=== PATIENT | female | born 1995 | race Caucasian/White ===

== ENCOUNTER → 2017-12-17 | Outpatient (CLI) | payer BC ==
--- NOTE | 2017-12-17 17:26 | Diagnostic Imaging Report ---
EXAM: Pelvic ultrasound. INDICATION: Abnormal uterine bleeding The previous pelvic ultrasound exam of 08/29/2014 failed to show any sign of an acute pelvic abnormality. On this exam, the uterus is nongravid, retroverted and not enlarged measuring 5 x 5.0 x 4.0 cm. The endometrial lining is not thickened measuring 5-6 mm. There is no focal mass involving the uterus to suggest a fibroid. In the interval since the prior exam, a 4.8 x 3.8 x 4.6 cm well-circumscribed hypoechoic lesion has developed in the right adnexa. Most likely this represent a large cyst arising from the right ovary. This cyst has a generally benign appearance although there may be a few internal echoes. This suggests that this maybe slightly complicated by infection and/or hemorrhage. The left ovary is unremarkable. There is good blood flow to each ovary and there is no sign of torsion. There is no solid pelvic mass identified but there was a small amount of free fluid in the pelvis. IMPRESSION: 1. There is a large 4.8 x 3.8 x 4.6 cm slightly complicated cyst associated with the right ovary. If further evaluation is desired, laparoscopy should be considered. If there is no intervention at this time, then a short-term (4-6 week) followup ultrasound exam should be obtained. 2. Aside from a small amount of free fluid in the pelvis, there is no acute abnormality noted otherwise. Dictated by: Dictated on workstation # [id number]
== END ==
LOC: RAD 13:43
PROVIDERS: ATTEND Obstetrics & Gynecology
DX: N83.201 Unspecified ovarian cyst, right side (principal); M25.48 Effusion, other site
CPT/HCPCS: 76830; 76856

== ENCOUNTER 2018-01-16 14:26 | Day surgery (SDC) | payer BC ==
[~2018-01-16] VITALS: Ht 162.6 cm; Wt 49.4 kg
[2018-01-16] MEDS: D5 LR IV SOLUTION 1,000 ML IV SCH ×2 (14:45→15:35)
--- OUTSIDE RECORDS SUMMARY | 2018-01-16 14:53 | XMS REPORT | Referral Summary ---
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 Discharge Disposition: 01-Home or Self Care Attending Physician: Anand Head MD Vital Signs Most recent to 1 oldest [Reference Range]: Peripheral Pulse 87 bpm Rate [60-100 bpm] (05/29/17 8:24 AM) Blood Pressure 110/70 mmHg [90-140/60-90 mmHg] (05/29/17 8:24 AM) Problem List Condition Effective Dates Status Health Status Informant 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 d) Allergies, Adverse Reactions, Alerts No Known Allergies Medications acetaminophen 0 Refill(s) Start Date: 05/29/17 Status: Ordered levothyroxine 25 mcg (0.025 mg) oral tablet 25 mcg 1 tabs, Oral, Daily, # 30 tabs, 0 Refill(s) Start Date: 05/29/17 Status: Ordered Motrin IB mg, Oral, q6hr, 0 Refill(s) Start Date: 10/30/14 Status: Ordered Results Chemistry Most recent to 1 oldest [Reference Range]: T4 Free [0.7-1.5 1.0 ng/dL ng/dL] (05/29/17 9:06 AM) TSH [0.35-4.94 5.87 mcIU/mL mcIU/mL] *HI* (05/29/17 9:06 AM) T3 Free [1.7-3.7 2.5 pg/mL pg/mL] (05/29/17 9:06 AM) Immunizations No data available for this section Procedures Procedure Date Related Diagnosis Body Site Status Collection of venous blood by venipuncture 05/29/17 Completed Miscellaneous operations1 09/19/14 Completed 1Bilateral femoral derotation osteotomy Social History Social History Type Response Smoking Status Never smoker entered on: 10/30/14 Assessment and Plan Extracted from: Title: Office Visit Note Author: Anand Head MD Date: 05/29/17 1) Will thyroiditis/Hypothyroidism - Discussed nature of disease and outcomes. - Repeat Thyroid functions. - Consider switching to brand name thyroid hormone. - Counseled on the proper way of taking thyroid hormone. Thank you for Referring to Endocrinology, will continue to follow up.
--- OUTSIDE RECORDS SUMMARY | 2018-01-16 14:54 | XMS REPORT ---
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 Duong. On narcotics for this issue Surgical History R knee scope 2012 Surgical History bilateral femeral derotation 2013 2013 Surgical History hardware removal 2016
--- OUTSIDE RECORDS SUMMARY | 2018-01-16 14:54 | XMS REPORT ---
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 152522766 ALLERGIES No Information ENCOUNTERS Encounter Location Date Diagnosis [facility] [address] [place] [address] Nov, [facility] [address] [place] [address] Nov, [facility] [address] [place] [address] Nov, [facility] [address] [place] [address] Nov, [facility] [address] [place] [address] Nov, Irregular menses N92.6 ; 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 and At high risk for breast cancer Z91.89 [facility] [address] [place] [address] Nov, [facility] [address] [place] [address] Mar, [facility] [address] [place] [address] Mar, [facility] [address] [place] [address] Nov, [facility] [address] [place] [address] Nov, [facility] [address] [place] [address] Oct, Other specified hypothyroidism E03.8 [facility] [address] [place] [address] Oct, [facility] [place] [address] [place] [address] Oct, Other specified hypothyroidism E03.8 [facility] [place] [address] [place] [address] Aug, Other specified hypothyroidism E03.8 ; Femoral rotation, 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 ; Family history of breast cancer Z80.3 and At high risk for breast cancer Z91.89 IMMUNIZATIONS No Known Immunizations SOCIAL HISTORY Never Assessed REASON FOR VISIT Abbagail PLAN OF CARE VITAL SIGNS MEDICATIONS Unknown Medications RESULTS No Results PROCEDURES No Known procedures INSTRUCTIONS MEDICATIONS ADMINISTERED No Known Medications MEDICAL (GENERAL) HISTORY Type Description Date Medical History migraine headaches with aura Medical History Hashimotos hypothyroidism, sees endocrine, [facility] Medical History Maternal grandmother with BRCA 2, patient's mother has had not tested positive, saw genetic counselor and no testing needed Medical History bilateral femoral derotation, 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 Duong. On narcotics for this issue Medical History Lifetime risk breast cancer 28% Surgical History R knee scope 2012 Surgical History bilateral femeral derotation 2013 2013 Surgical History hardware removal 2016
--- OUTSIDE RECORDS SUMMARY | 2018-01-16 14:54 | XMS REPORT ---
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
--- OUTSIDE RECORDS SUMMARY | 2018-01-16 14:54 | XMS REPORT ---
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 573247466 ALLERGIES No Information ENCOUNTERS Encounter Location Date Diagnosis [facility] [place] [address] [place] [address] Nov, [facility] [place] [address] [place] [address] Nov, Irregular menses N92.6 ; 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 and At high risk for breast cancer Z91.89 [facility] [place] [address] [place] [address] Nov, [facility] [address] [place] [address] Mar, [facility] [place] [address] [place] [address] Mar, [facility] [address] [place] [address] Nov, [facility] [address] [place] [address] Nov, [facility] [address] [place] [address] Oct, Other specified hypothyroidism E03.8 [facility] [address] [place] [address] Oct, [facility] [address] [place] [address] Oct, Other specified hypothyroidism E03.8 [facility] [address] [place] [address] Aug, Other specified hypothyroidism E03.8 ; Femoral rotation, 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
--- OUTSIDE RECORDS SUMMARY | 2018-01-16 14:54 | XMS REPORT ---
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 402740211 ALLERGIES No Information ENCOUNTERS Encounter Location Date Diagnosis [facility] [address] [place] [address] Nov, [facility] [address] [place] [address] Nov, [facility] [address] [place] [address] Nov, [facility] [address] [place] [address] Nov, [facility] [address] [place] [address] Nov, Irregular menses N92.6 ; 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 and At high risk for breast cancer Z91.89 [facility] [address] [place] [address] Nov, [facility] [address] [place] [address] Mar, [facility] [address] [place] [address] Mar, [facility] [address] [place] [address] Nov, [facility] [address] [place] [address] Nov, [facility] [address] [place] [address] Oct, Other specified hypothyroidism E03.8 [facility] [address] [place] [address] Oct, [facility] [place] [address] [place] [address] Oct, Other specified hypothyroidism E03.8 [facility] [place] [address] [place] [address] Aug, Other specified hypothyroidism E03.8 ; Femoral rotation, 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
--- OUTSIDE RECORDS SUMMARY | 2018-01-16 14:54 | XMS REPORT ---
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
--- OUTSIDE RECORDS SUMMARY | 2018-01-16 14:54 | XMS REPORT ---
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
--- OUTSIDE RECORDS SUMMARY | 2018-01-16 14:54 | XMS REPORT ---
Author Author Skylar Devine 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 [place] [address] [place] [address] Mar, [facility] [address] [place] [address] Nov, [facility] [address] [place] [address] Nov, [facility] [address] [place] [address] Oct, Other specified hypothyroidism E03.8 [facility] [address] [place] [address] Oct, [facility] [address] [place] [address] Oct, Other specified hypothyroidism E03.8 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 ; Family history of breast cancer Z80.3 and At high risk for breast cancer Z91.89 IMMUNIZATIONS No Known Immunizations SOCIAL HISTORY Never Assessed REASON FOR VISIT PELVIC EXAM/IRREGULAR BLEEDING PLAN OF CARE Activity Details Pending Test CBC Pending Test COMPREHENSIVE CHEM PROFILE Pending Test HbA1C Pending Test TSH Pending Test FREE T4 Pending Test FSH Pending Test LH Pending Test HCG, BETA QUANT Pending Test CHLAMYDIA/GC AMPLIFICATION #101809 Pending Test Prolactin #294247 Pending Test Progesterone #792981 Pending Test ANA LILIA/Saline Wet Prep (Vag, Mouth/Tongue/Mucous Membranes) Pending Test DHEA Sulfate #745405 VITAL SIGNS Weight 107.8 lbs 2017-11-20 Height 63 in 2017-11-20 Temperature 98.2 degrees Fahrenheit 2017-11-20 Heart Rate 74 /min 2017-11-20 Oximetry 98 % 2017-11-20 BMI 19.09 kg/m2 2017-11-20 Blood pressure systolic 120 mm Hg 2017-11-20 Blood pressure diastolic 82 mm Hg 2017-11-20 MEDICATIONS Medication Instructions Dosage Frequency Start Date End Date Duration Status Zyrtec Allergy 10 MG Orally Once a day 1 tablet 24h Active Levothyroxine Sodium 25 MCG Orally Once a day 1 tablet on an empty stomach in the morning 24h 90 days Active Hydrocodone-Acetaminophen 5-325 MG Orally every 6 hrs 1 tablet as needed 6h Active Acetaminophen 325 MG Orally every 6 hrs 2 capsules as needed 6h Active RESULTS No Results PROCEDURES Procedure Date Ordered Result Body Site CHLAMYDIA DNA Nov 20, 2017 GC DNA Nov 20, 2017 ANA LILIA/SALINE WET PREP Nov 20, 2017 CBC Nov 20, 2017 COMP PROFILE Nov 20, 2017 TSH Nov 20, 2017 FREE T4 Nov 20, 2017 PROGESTERONE Nov 20, 2017 DHEA SULFATE Nov 20, 2017 HgB A1C Nov 20, 2017 PROLACTIN Nov 20, 2017 HCG BETA QUANT Nov 20, 2017 LH Nov 20, 2017 FSH Nov 20, 2017 INSTRUCTIONS MEDICATIONS ADMINISTERED No Known Medications MEDICAL [...]
--- OUTSIDE RECORDS SUMMARY | 2018-01-16 14:54 | XMS REPORT ---
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
--- OUTSIDE RECORDS SUMMARY | 2018-01-16 14:54 | XMS REPORT ---
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
--- OUTSIDE RECORDS SUMMARY | 2018-01-16 14:54 | XMS REPORT ---
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 708081010 ALLERGIES No Information ENCOUNTERS Encounter Location Date Diagnosis [facility] [place] [address] [place] [address] Nov, [facility] [place] [address] [place] [address] Nov, [facility] [place] [address] [place] [address] Mar, [facility] [place] [address] [place] [address] Mar, [facility] [place] [address] [place] [address] Nov, [facility] [place] [address] [place] [address] Nov, [facility] [place] [address] [place] [address] Oct, Other specified hypothyroidism E03.8 [facility] [place] [address] [place] [address] Oct, [facility] [place] [address] [place] [address] Oct, Other specified hypothyroidism E03.8 [facility] [place] [address] [place] [address] Aug, Other specified hypothyroidism E03.8 ; Femoral rotation, 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
--- OUTSIDE RECORDS SUMMARY | 2018-01-16 14:54 | XMS REPORT ---
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 [id number] ALLERGIES No Information ENCOUNTERS Encounter Location Date Diagnosis [facility] [address] [place] [address] Nov, [facility] [address] [place] [address] Nov, [facility] [address] [place] [address] Nov, [facility] [address] [place] [address] Nov, [facility] [address] [place] [address] Nov, Irregular menses N92.6 ; 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 and At high risk for breast cancer Z91.89 [facility] [address] [place] [address] Nov, [facility] [address] [place] [address] Mar, [facility] [address] [place] [address] Mar, [facility] [address] [place] [address] Nov, [facility] [address] [place] [address] Nov, [facility] [address] [place] [address] Oct, Other specified hypothyroidism E03.8 [facility] [address] [place] [address] Oct, [facility] [address] [place] [address] Oct, Other specified hypothyroidism E03.8 [facility] [place] [address] [place] [address] Aug, Other specified hypothyroidism E03.8 ; Femoral rotation, 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
--- OUTSIDE RECORDS SUMMARY | 2018-01-16 14:54 | XMS REPORT ---
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
--- OUTSIDE RECORDS SUMMARY | 2018-01-16 14:54 | XMS REPORT ---
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 Unknown Non Drug Allergy Aug, Unknown SOCIAL HISTORY No smoking Hx information available PLAN OF CARE Activity Details Follow Up prn Reason: VITAL SIGNS Weight 104.4 lbs 2016-08-29 Height 63 in 2016-08-29 Temperature 98.6 degrees Fahrenheit 2016-08-29 Heart Rate 74 /min 2016-08-29 Oximetry 100 % 2016-08-29 BMI 18.49 kg/m2 2016-08-29 Blood pressure systolic 98 mm Hg 2016-08-29 Blood pressure diastolic 66 mm Hg 2016-08-29 MEDICATIONS Medication Instructions Dosage Frequency Start Date End Date Duration Status Acetaminophen 325 MG Orally every 6 hrs 2 capsules as needed 6h Active Zyrtec Allergy 10 MG Orally Once a day 1 tablet 24h Active Levothyroxine Sodium 25 MCG Orally Once a day 1 tablet on an empty stomach in the morning 24h 90 days Active Hydrocodone-Acetaminophen 5-325 MG Orally every 6 hrs 1 tablet as needed 6h Active RESULTS No Results PROCEDURES Procedure Date Ordered Related Diagnosis Body Site OFFICE VISITNEW PT August 29, 2016 IMMUNIZATIONS No Known Immunizations
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
[2018-01-16 15:19] LABS: BASOPHILS % (AUTO) 1 % (0-10); EOSINOPHILS # (AUTO) 0.1 10^3/uL (0.0-0.3); EOSINOPHILS % (AUTO) 2 % (0-10); HEMATOCRIT 34 % (35-52); HEMOGLOBIN 11.2 G/DL (11.5-16.0); LYMPHOCYTES % (AUTO) 32 % (12-44); MEAN CORPUSCULAR HEMOGLOBIN 27 PG (25-34); MEAN CORPUSCULAR HGB CONC 33 G/DL (32-36); MEAN CORPUSCULAR VOLUME 82 FL (80-99); MEAN PLATELET VOLUME 10.9 FL (7.4-10.4); MONOCYTES # (AUTO) 0.6 X 10^3 (0.0-1.0); MONOCYTES % (AUTO) 10 % (0-12); NEUTROPHILS # (AUTO) 3.4 X 10^3 (1.8-7.8); NEUTROPHILS % (AUTO) 56 % (42-75); PLATELET COUNT 238 10^3/uL (130-400); RED BLOOD COUNT 4.19 10^6/uL (4.35-5.85); RED CELL DISTRIBUTION WIDTH 15.1 % (10.0-14.5); WHITE BLOOD COUNT 6.2 10^3/uL (4.3-11.0)
--- NOTE | 2018-01-16 15:19 | History & Physical-OB/GYN ---
History of Present Illness History of Present Illness Reason for visit/HPI This 22-year-old female who is an established patient with me as contacted me last night with sudden onset severe pelvic pain that she described a 12 at 10. This concern may significantly due to the fact the patient has had extremely painful surgeries in the past including hip rotation ostomy surgery. The patient reports she was awoken from sleep, she took naproxen which somewhat decreased the pain, however, it continues today and is steadily getting worse and worse. She reports about 4 hours ago she was able to keep it at bay by laying flat but now not even that is helping. She reports that is sometimes 7- 8 out of pain and is bringing tears to her eyes at times. She missed an examination this morning due to the fact that she could not focus as she is distracted by this significant pain. 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 On previous ultrasound there was bilateral ovarian cyst however more so on the left side with the largest being 4.8 cm and complex. I saw her in my office earlier and performed a bedside unofficial ultrasound which revealed subtle enlargement of the left ovary to just over 5 cm , as well as multicystic appearing right ovary. 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 Alcohol Use: Denies Use Recreational Drug Use: No Smoking Status: Never a Smoker Sexual Abuse: No Recent Foreign Travel: No Contact w/other who traveled: No Seasonal Allergies Seasonal Allergies: No Surgeries Yes Joint Replacement (hip replacement as well as knee scope) Respiratory No Reproductive System : No Hx Reproductive Disorders: No Sexually Transmitted Disease: No HIV/AIDS: No Female Reproductive Disorders: Menstrual Problems (irregularities), Ovarian Cyst Genitourinary No Gastrointestinal No Musculoskeletal No Endocrine Endocrine Disorders: Hypothyroidsim Are Your Blood Sugars Over 250: No HEENT History of HEENT Disorders: No Cancer No Psychosocial History of Psychiatric Problem: No Integumentary History of Skin or Integumenta: No Blood Transfusions History of Blood Disorders: No Adverse Reaction to a Blood Tr: No Family Medical History Significant Family History: No Pertinent Family Hx Review of Systems Constitutional: see HPI EENTM: see HPI Respiratory: see HPI Cardiovascular: see HPI Genitourinary: see HPI : No Musculoskeletal: see HPI Skin: see HPI Psychiatric/Neurological: See HPI All Other Systems Reviewed Negative Unless Noted: Yes Physical Exam Physical Exam Vital Signs Capillary Refill : Labs Laboratory Tests 01/16/18 15:05: General Appearance: Anxious, Mild Distress Respiratory: Lungs Clear, Normal Breath Sounds Cardiovascular: Regular Rate, Rhythm, No Edema Abdominal: soft, tenderness (diffuse tenderness in bilateral lower quadrants. Mild rebound tenderness no guarding or rigidity) Pelvic Exam: deferred Extremity: Normal Capillary Refill Assessment/Plan Assessment and Plan Plan: I discussed the patient conservative management monitoring however she is getting worse since last evening and wants to proceed with more aggressive measures that she has been following this pain that has been subtle for the past 3-4 weeks and is concerned that it will only continue to worsen. I discussed the patient proceeding with diagnostic laparoscopy, this may include salpingectomy on either side or oophorectomy on other side she demonstrates understanding for this and knows that her fertility may be compromised however we will do our upmost to avoid compromising her long-term fertility and repercussions surrounding that. Risk of the procedure was discussed the patient in detail including risk of bleeding, infection, damaging surrounding structures including but not limited to bowel, bladder, ureter, kidneys, damage the uterus itself, and loss of fertility. We discussed possible need for blood transfusion, possible laparotomy, risk from anesthesia, and even . After all of her questions were answered and consent was obtained or staff was notified and we'll proceed as soon as they are ready. Admission Diagnosis 24-year-old female with acute onset pelvic pain Mild rebound tenderness Bilateral ovarian cyst Admission Status: Observation TREVOR LYONS DO Jan 16, 2018 3:19 pm
[2018-01-16 15:34] VITALS: BP 103/69
[2018-01-16 16:00] LABS: BILIRUBIN,URINE NEGATIVE (NEGATIVE); CLARITY,URINE CLEAR; COLOR,URINE YELLOW; GLUCOSE, URINE (UA) 4+ (NEGATIVE); KETONES,URINE 1+ (NEGATIVE); LEUKOCYTE ESTERASE ,URINE NEGATIVE (NEGATIVE); NITRITE,URINE NEGATIVE (NEGATIVE); PH,URINE 6.5 (5-9); PROTEIN,URINE NEGATIVE (NEGATIVE); UROBILINOGEN,URINE NORMAL (NORMAL)
[2018-01-16 16:03] LABS: BAND NEUTROPHILS 0 %; BASOPHILS % (MANUAL) 0 %; EOSINOPHILS % (MANUAL) 3 %; LYMPHOCYTES % (MANUAL) 33 %; MONOCYTES % (MANUAL) 8 %; NEUTROPHILS % (MANUAL) 56 %; RBC MORPH NORMAL
[2018-01-16 16:10] LABS: BACTERIA,URINE TRACE /HPF; WBC,URINE RARE /HPF
[2018-01-16] MEDS ORDERED: ROCURONIUM 10 MG/ML 5 ML SYRINGE IV ONE (16:15)
[2018-01-16] MEDS ORDERED: SEVOFLURANE (ULTANE) 15 ML INHAL SOLN ONE ×2 (16:15→17:39)
[2018-01-16] MEDS ORDERED: fentaNYL INJECTION 100 MCG/2 ML AMP ONE (16:15)
[2018-01-16] MEDS ORDERED: proPOfol 200 MG/20 ML (DIPRIVAN) VIAL IV ONE (16:15)
[2018-01-16] MEDS ORDERED: MIDAZOLAM 2 MG/2 ML (VERSED) VIAL ONE (16:15)
[2018-01-16] MEDS ORDERED: DEXAMETHASONE 10 MG/ML (DECADRON) 1 ML VIAL ONE (16:15)
[2018-01-16] MEDS ORDERED: LIDOCAINE PF 2% 5 ML (XYLOCAINE) VIAL ONE (16:15)
[2018-01-16] MEDS ORDERED: ONDANSETRON 4 MG/2 ML (SDV) Z0FRAN ONE ×2 (16:15→20:11)
[2018-01-16] MEDS ORDERED: BUPIVACAINE 0.25% 30 ML (SENSORCAINE) VIAL ONE (16:25)
[2018-01-16] MEDS: LACTATED RINGERS 1,000 ML IV PRN ×2 (16:46→17:43)
[2018-01-16] MEDS ORDERED: FLU QUADRIvalent (5+ YOA) 2018-2019 (AFLURIA) 0.5 ML IM ONE (17:00)
[2018-01-16] MEDS ORDERED: MEPERIDINE (DEMEROL) INJ 50 MG/ML IVP ONE (17:15)
[2018-01-16] MEDS ORDERED: PROMETHAZINE INJ 25 MG/ML (PHENERGAN) AMP IVP ONE (17:15)
[2018-01-16] MEDS ORDERED: ONDANSETRON 4 MG/2 ML (SDV) Z0FRAN IVP PRN ×2 (17:15→19:15)
[2018-01-16] MEDS ORDERED: morphine INJ 10 MG/ML 1ML (SYR OR VIAL) IVP ONE (17:15)
[2018-01-16] MEDS ORDERED: HYDROmorphone 2 MG/ML VIAL (DILAUDID) IV ONE (17:15)
[2018-01-16] MEDS ORDERED: NEOSTIGMINE 1 MG/ML 5 ML SYRINGE ONE (17:35)
[2018-01-16] MEDS ORDERED: GLYCOPYRROLATE 0.2 MG/ML (ROBINUL) 2 ML VIAL ONE (17:35)
[2018-01-16] MEDS ORDERED: morphine INJ 10 MG/ML 1ML (SYR OR VIAL) ONE (17:46)
[2018-01-16] MEDS ORDERED: KETOROLAC 30 MG/ML VIAL ONE ×2 (17:47→19:19)
--- NOTE | 2018-01-16 18:35 | Anesthesia-General Post-Op ---
General Patient Condition Mental Status/LOC: Same as Preop Cardiovascular: Satisfactory Nausea/Vomiting: Absent Respiratory: Satisfactory Pain: Controlled Complications: Absent Post Op Complications Complications None Follow Up Care/Instructions Patient Instructions None needed. Anesthesia/Patient Condition Patient Condition Patient is doing well, no complaints, stable vital signs, no apparent adverse anesthesia problems. No complications reported per nursing. DUSTIN GRIFFIN CRNA Jan 16, 2018 18:35
[2018-01-16 18:55] VITALS: BP 104/66
[2018-01-16] MEDS ORDERED: D5 LR IV SOLUTION 1,000 ML IV SCH (19:07)
--- NOTE | 2018-01-16 19:09 | Discharge Inst-Women's Service ---
Discharge Inst-Women's Serv Depart Medication/Instructions New, Converted or Re-Newed RX: RX on Chart Consults/Follow Up Additional Follow Up: Yes Orders/Referrals Dr. Martell in 7-10 days Activity Activity: Activity as Tolerated Driving Instructions: You May Drive (do not drive while taking oxycodone) NO SMOKING: NO SMOKING Nothing Inside Vagina: No Douching, No [place], No Tampons Diet Discharge Diet: No Restrictions Symptoms to Report to : Bleeding Excessive, Pain Increased, Fever Over 101 Degrees F, Vaginal Bleeding Increase, Questions/Concerns For Any Problems or Questions: Contact Your Physician Skin/Wound Care Infection Signs and Symptoms: Increased Redness, Foul Odor of Wound, Increased Drainage, Skin Itchy or Has a Rash, Increased Swelling, Temperature Above 101 F Operative Area Clean and Dry: Keep Incision Clean/Dry Stitches/Jaz/Dermabond: Dermabond, Care of Stitches Bathing Instructions: TREVOR Monique DO Jan 16, 2018 19:09
[2018-01-16] MEDS ORDERED: IBUP-1773 PO (19:10)
[2018-01-16] MEDS ORDERED: OXYC1TAB87 PO (19:10)
[2018-01-16] MEDS ORDERED: KETOROLAC 30 MG/ML VIAL IVP ONE (19:15)
[2018-01-16] MEDS ORDERED: oxyCODONE/APAP 5/325MG (PERCOCET 5) TABLET PO PRN (19:15)
[2018-01-16] MEDS ORDERED: oxyCODONE/APAP 5/325MG (PERCOCET 5) TABLET ONE (20:00)
[2018-01-16] MEDS ORDERED: HYDROmorphone 2 MG/ML VIAL (DILAUDID) ONE (20:18)
[2018-01-16] MEDS ORDERED: HYDROmorphone 2 MG/ML VIAL (DILAUDID) IV PRN (20:30)
[2018-01-16 23:36] VITALS: BP 108/70
--- NOTE | 2018-01-16 23:42 | OPERATIVE REPORT ---
DATE OF SERVICE: PREOPERATIVE DIAGNOSES: 1. A 22-year-old female with acute onset pelvic pain. 2. Bilateral ovarian cyst. POSTOPERATIVE DIAGNOSES: 1. A 22-year-old female with acute onset pelvic pain. 2. Bilateral ovarian cyst. 3. Adhesions of the omentum to the anterior cul-de-sac. PROCEDURE: Laparoscopic right ovarian cystectomy, left ovarian cystotomy with lysis of adhesions and evacuation of hemoperitoneum. SURGEON: Lavon Lyons DO ANESTHESIA: General endotracheal. ESTIMATED BLOOD LOSS: Minimal. URINE OUTPUT: 50 mL, clear at the end of the procedure. FLUIDS: 1000 mL lactated Ringer solution. FINDINGS: Mildly enlarged right ovary with a simple-appearing right ovarian cyst, several small multicystic appearing cyst of the left ovary and adhesions of the omentum to the anterior cul-de-sac. SPECIMENS SENT: Right ovarian cyst wall. INDICATIONS FOR PROCEDURE: This 22-year-old female is a patient that I ended up admitting after a complaint of significant amounts of pain that she was having. The patient had dealt with ovarian cyst in the past and was followed in my office as an outpatient with ovarian cyst. She was attempted to be managed medically. However, since that time, her symptoms have progressively gotten worse to the point that they are kept her up all night and has inhibit her from eating most of the day today. Due to these ongoing issues and unrelenting pain today causing the patient to miss testing, the patient wanted to proceed with more aggressive measures. At this point, I discussed with the patient diagnostic laparoscopy. Risks of procedure were discussed with the patient in detail. After all of her questions were answered, consent was obtained in the preoperative area and the patient was taken to the operating room. OPERATIVE REPORT IN DETAIL: Once in the operating room, general anesthesia was found to be adequate. She was placed in the dorsal lithotomy position, prepped and draped in normal sterile fashion performed a timeout and placing a Nicole catheter using sterile technique. A weighted speculum was inserted into the patient's vagina. A right angle retractor was used to visualize the cervix, which was grasped at 12 o'clock position using a long Allis clamp. I then gently sound the uterine cavity depth, it was found to be 7 cm. I then gently dilated the cervix using Hegar dilators to allow me to place a Kronner uterine manipulator. Once this was in place, I removed all the other instruments and performed a change of gloves. I took my attention to the abdomen where infraumbilically I infiltrated this area using 0.25% Marcaine to make a 5 mm incision and directed Veress needle through the incision until intraperitoneal placement was confirmed using a saline drop test. I then proceeded with insufflation using CO2 gas and opening pressure of 5 mmHg was noted. I proceeded to maximum pressure of 15 mmHg, at which point I removed the Veress needle and introduced a 5 mm blunt camera trocar. Once this was in place, I am able to confirm intraperitoneal placement using the laparoscope. I briefly scanned the upper abdominal anatomy. I am able to visualize the diaphragm as well as the appendix, which appears grossly normal appearance. There is raf blood noted in the peritoneum of the pelvis. I evacuated this after I placed the second trocar. A suprapubic 5 mm in the similar fashion to my infraumbilical trocar; however, this one was placed under direct visualization of the laparoscope. Once this was in place, I suctioned out the pelvis using suction irrigation. I decided to remove the right ovarian cyst and a portion of the cyst wall. I do so by placing a third trocar site this was in the left lower quadrant in similar fashion. It was also placed under direct visualization of the laparoscope. Once this was in place, I am able to grasp the ovary and isolated. Therefore, it does not move and then I am able to create an elliptical incision around the cyst wall of the right ovarian cyst and gently pulled and dissected off of the right ovary. Once this was taken off, I am able to remove one of my trocar sites and sent as right ovarian cyst wall. There was no active bleeding noted from anywhere on the dissection plane of the right ovary. I then isolated the left ovary and find multiple small loculated cysts, which were ruptured using EndoShears monopolar cautery. Once this was done, there was no active bleeding noted from any of those cysts as well. There were also filmy adhesions of multiple sites of the peritoneum to the anterior cul-de-sac. These were taken down using the EndoShears as well, after which there was no active bleeding noted from any of those dissection planes. Once again, I copiously irrigated the pelvis using normal saline. Once again, there was no active bleeding noted from any of my dissection planes. I had the patient taken out of steep Trendelenburg. I removed the left lower quadrant trocar under direct visualization of the laparoscope. The infraumbilical trocar was also removed under direct visualization of the laparoscope by moving the camera to the suprapubic port. I then leave the suprapubic port in place in order to release insufflation and to introduce 10 mL of 0.25% Marcaine into the peritoneal cavity. After this was done, I then removed the suprapubic port. I then closed the skin using Dermabond and Band-Aids were placed over the incisions. The Kronner uterine manipulator and Nicole catheter were removed. After this was done, the patient tolerated the procedure well and sent to the recovery area in stable condition. Lap and sponge counts were correct at the end of the procedure. Instrument counts were correct as well. Job ID: [id number] DocumentID: [id number] Dictated Date: 01/16/2018 19:19:04 Camera Systems Engineer Date: 01/16/2018 23:42:05 Dictated By: LAVON LYONS DO
[2018-01-17] MEDS ORDERED: KETOROLAC 30 MG/ML VIAL ONE (01:52)
[2018-01-17] MEDS ORDERED: KETOROLAC 30 MG/ML VIAL IVP ONE (02:15)
[2018-01-17 04:00] VITALS: BP 113/69
--- NOTE | 2018-01-17 09:26 | Progress Note-Standard ---
Standard Progress Note Progress Notes/Assess & Plan Date Seen by a Provider: Jan 17, 2018 Time Seen by a Provider: 08:45 Progress/Assessment & Plan Patient feeling much better today, sore from gas under the diaphragm post op from laparoscopy. Vital Sign - Last 24 Hours 01/16/18 01/16/18 01/16/18 01/17/18 15:34 18:55 23:36 04:00 Temp 98.4 97.4 97.8 98.7 Pulse 73 88 81 84 Resp 18 B/P (MAP) 103/69 (80) 104/66 (79) 108/70 (83) 113/69 (84) Pulse Ox 100 100 100 100 O2 Delivery Room Air Room Air Room Air Room Air Intake and Output 01/16/18 01/16/18 01/17/18 15:00 23:00 07:00 Intake Total 2000 ml 500 ml Output Total 50 ml 1000 ml Balance 1950 ml -500 ml Incisions- c/d/i Diagnosis: POD 1 Laparoscopic right ovarian cystectomy, left ovarian cystotomy, ROSCOE, evacuation hematoperitoneum TREVOR LYONS DO Jan 17, 2018 9:26 am
[2018-01-17] MEDS ORDERED: IBUPROFEN 600 MG (MOTRIN) TAB PO ONE (10:19)
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
== END 2018-01-17 10:55 | disposition home or self-care (01) ==
LOC: WS 14:26 → WSo 14:26 → WS 14:33 → UNDOADMOB 14:33 → UNDOADMIN 14:33 → EDSTATUS 14:49 → WSo 01-17 10:55 → UNDODISOB 01-17 10:55
PROVIDERS: ATTEND Obstetrics & Gynecology
DX: N83.201 Unspecified ovarian cyst, right side (principal); N83.202 Unspecified ovarian cyst, left side; N73.6 Female pelvic peritoneal adhesions (postinfective); E03.9 Hypothyroidism, unspecified; Z79.899 Other long term (current) drug therapy
CPT/HCPCS: 36415; 81000; 84703; 85007; 85027; 86850; 86900; 86901

== ENCOUNTER → 2019-07-12 | Outpatient (CLI) | payer OTHER, BC ==
[~2019-07-12] MED LIST: IBUP-1773 PO; OXYC1TAB87 PO
--- NOTE | 2019-07-12 10:56 | Diagnostic Imaging Report ---
INDICATION: Right upper quadrant abdominal pain TECHNIQUE: Multiple real-time jose scale sonographic images of the abdomen. CORRELATION STUDY: None FINDINGS: LIVER: Normal echotexture within the visualized portions of the liver. There is normal, hepatopedal direction of flow within the main portal vein. Liver length is normal, 16 cm. GALLBLADDER: No shadowing gallstones or pericholecystic fluid. COMMON BILE DUCT: Nondilated at 4 mm. PANCREAS: Limited in visualization. The visualized portions appearing unremarkable. SPLEEN: Unremarkable. ABDOMINAL AORTA: Unremarkable. INFERIOR VENA CAVA: Limited in visualization. RIGHT KIDNEY: 10.0 x 4.4 x 3.8 cm. Unremarkable. LEFT KIDNEY: There is limited and incomplete visualization of the left kidney. OTHER: None. IMPRESSION: 1. Unremarkable-appearing abdominal ultrasound evaluation. Dictated by: Dictated on workstation # [id number]
== END ==
LOC: RAD 09:45
PROVIDERS: ATTEND Obstetrics & Gynecology
DX: R10.11 Right upper quadrant pain (principal)
CPT/HCPCS: 76700

== ENCOUNTER → 2019-07-15 | Outpatient (CLI) | payer OTHER, BC ==
[~2019-07-15] MED LIST changes: +CATHETER FLUSH 10 ML SYR IV PRN; +bcp PO
--- NOTE | 2019-07-15 09:55 | Diagnostic Imaging Report ---
EXAMINATION: Gallbladder scintigraphy HISTORY: Right upper quadrant pain COMPARISON: None available. TECHNIQUE: Anterior scintigraphic imaging of the abdomen was performed after the intravenous administration of 4.75 mCi Tc-99m Choletec. FINDINGS: The upper abdomen was imaged for 60 minutes with the gamma camera. There is prompt homogeneous uptake of radiopharmaceutical by the liver. There is activity in the common duct and gallbladder by 10 minutes. Small bowel activity is seen by 40 minutes. At 60 minutes, the patient received 8 ounces of ensure. After an additional 30 minutes, the gallbladder ejection fraction was calculated to be 51% (normal is >35%) IMPRESSION: 1. Patent common and cystic bile ducts. 2. No gallbladder dysfunction. Dictated by: Dictated on workstation # [id number]
== END ==
LOC: CARD 06:54
PROVIDERS: ATTEND Surgery
DX: R10.11 Right upper quadrant pain (principal); R11.0 Nausea
CPT/HCPCS: 78227

== ENCOUNTER 2019-07-21 09:49 | Outpatient (RCR) | payer OTHER, BC ==
[~2019-07-21] VITALS: Ht 162.6 cm; Wt 57.3 kg
[~2019-07-21 09:49] MED LIST changes: -PANT40TA2 PO
[2019-07-22] MEDS ORDERED: PANT40TA2 PO (14:06)
== END 2019-07-21 16:30 | disposition home or self-care (01) ==
LOC: SDC 09:49
PROVIDERS: ATTEND Surgery
DX: Z01.818 Encounter for other preprocedural examination (principal)
CPT/HCPCS: 87635

== ENCOUNTER → 2019-07-21 | Outpatient (CLI) | payer OTHER, BC ==
[~2019-07-21] MED LIST changes: -CATHETER FLUSH 10 ML SYR IV PRN; +PANT40TA2 PO
== END ==
LOC: LAB FS 11:18
PROVIDERS: ATTEND Surgery
DX: Z01.818 Encounter for other preprocedural examination (principal); Z11.59 Encounter for screening for other viral diseases
CPT/HCPCS: 87635

== ENCOUNTER → 2020-06-25 | Outpatient (CLI) | payer BC ==
[~2020-06-25] MED LIST changes: +PANT40TA2 PO
--- NOTE | 2020-06-25 16:08 | Diagnostic Imaging Report ---
INDICATION: Right upper quadrant pain. EXAMINATION: KUB at 3:52 PM. FINDINGS: The bowel gas pattern is normal. There are no pathologic masses seen. There is a 2 mm calcification projecting over the left renal pelvis that could be a calculus. IMPRESSION: Questionable left renal calculus. The abdomen is otherwise unremarkable. Dictated by: Dictated on workstation # [id number]
== END ==
LOC: RAD 15:28
PROVIDERS: ATTEND Surgery
DX: R10.11 Right upper quadrant pain (principal)
CPT/HCPCS: 74018

== ENCOUNTER 2020-07-18 07:47 | Emergency (ER) | payer BC ==
[~2020-07-18] VITALS: Ht 162 cm; Wt 58.0 kg
[2020-07-18 07:50] VITALS: BP 123/94
--- NOTE | 2020-07-18 08:15 | ED Abdominal Pain ---
General Chief Complaint: Abdominal/GI Problems Stated Complaint: EPIGASTRIC PAIN Nursing Triage Note: CHRONIC EPIGASTRIC PAIN. PT HAS BEEN TO GENERAL SURGEON, HAD EGD A YEAR AGO NA [facility]AS OCCASIONAL EPIGASTRIC PAIN. SHE HAS NOT TAKEN ANYTHING OTC PRIOR TO ARRIVAL. SHE HAS A HX OF GASTRITIS. Sepsis Screen: No Definite Risk Source of Information: Patient History of Present Illness Date Seen by Provider: July 18, 2020 Time Seen by Provider: 08:00 Initial Comments Patient is a 24-year-old female with history of gastritis who presents with epigastric pain for several hours. Pain is sharp nonradiating rated moderate to severe. Pain is worse at night and after eating. No medications or therapies taken prior to ED arrival. Patient has had outpatient EGD which showed gastritis and gallbladder ultrasound which was negative. Patient discontinued her PPI 2 days ago due to hives and has not taken the new medication her PCP prescribed due to concern for possible side effects. No reported hematemesis, coffee-ground emesis melena or hematochezia. No other acute symptoms or complaints. Timing/Duration: 4-6 Hours Severity/Quality: Burning Location: Other Radiation: Other Activities at Onset: Other Modifying Factors: Improves With Other Associated Symptoms: Other Allergies and Home Medications Allergies Coded Allergies: hydrocodone (Unverified Adverse Reaction, Mild, hives, 07/18/20) pantoprazole (Unverified Adverse Reaction, Mild, hives, 07/18/20) Home Medications [bcp] , 1 TAB PO DAILY, (Reported) Patient Home Medication List Home Medication List Reviewed: Yes Review of Systems Review of Systems Constitutional: see HPI EENTM: See HPI Respiratory: See HPI Cardiovascular: See HPI Gastrointestinal: See HPI Genitourinary: See HPI Musculoskeletal: see HPI Skin: see HPI Psychiatric/Neurological: See HPI Endocrine: See HPI Hematologic/Lymphatic: See HPI Past Bxnptjt-Gsnrfl-Gwnxqh Hx Past Med/Social Hx: Reviewed Nursing Past Med/Soc Hx Patient Social History Alcohol Use: Denies Use Smoking Status: Never a Smoker Recent Infectious Disease Expo: No Recent Hopitalizations: No Seasonal Allergies Seasonal Allergies: No Past Medical History Surgeries: Yes (R knee scope, bilat femur osteotomy, then hardware removed twice, DXLS) Joint Replacement Respiratory: No Cardiac: No Neurological: No Reproductive Disorders: No Female Reproductive Disorders: Menstrual Problems, Ovarian Cyst Sexually Transmitted Disease: No HIV/AIDS: No Genitourinary: No Gastrointestinal: Yes (epigastric abd pain) Musculoskeletal: No Endocrine: No (not taking thyroid med last 6 months) Hypothyroidsim HEENT: No Cancer: No Psychosocial: No Integumentary: No Blood Disorders: No Adverse Reaction/Blood Tranf: No Family Medical History No Pertinent Family Hx Physical Exam Vital Signs Vital Signs - First Documented 07/18/20 07:50 Temp 37.0 Pulse 85 Resp 18 B/P (MAP) 123/94 (104) Pulse Ox 99 O2 Delivery Room Air Capillary Refill : Less Than 3 Seconds Height/Weight/BMI Height: 5'4.00" Weight: 109lbs. 0.0oz. 49.573233hi; 22.00 BMI Method: General Appearance: no apparent distress Respiratory: lungs clear, normal breath sounds Cardiovascular: regular rate, rhythm Gastrointestinal: soft, tenderness (Mild epigastric pain/tenderness) Extremities: non-tender Focused Exam Sepsis Stage: Ruled Out Progress/Results/Core Measures Results/Orders Vital Signs/I&O 07/18/20 07:50 Temp 37.0 Pulse 85 Resp 18 B/P (MAP) 123/94 (104) Pulse Ox 99 O2 Delivery Room Air Blood Pressure Mean: 104 Departure Communication (Admissions) Patient with known gastritis off medication with recurrence of epigastric pain. Abdomen soft nonsurgical. No medications or therapies taken prior to ED arrival. Patient does have a new prescription available to her at local pharmacy. Recommendations to fill prescription and obtain an immediate relief and acid upon discharge. If patient is to has further symptoms she is to follow-up with her PCP. Impression Primary Impression: EPIGASTRIC/ABD. PAIN Additional Impression: Gastritis Disposition: 01 HOME, SELF-CARE Condition: Stable Departure-Patient Inst. Decision time for Depature: 08:14 Referrals: NO,LOCAL PHYSICIAN (PCP/Family) Primary Care Physician Patient Instructions: Gastritis Add. Discharge Instructions: Go to local pharmacy upon discharge from the emergency department. Purchase liquid Gaviscon or Maalox and Pepcid OTC. Fill prescription provided to you by your PCP. Follow-up with your PCP for further management. All discharge instructions reviewed with patient and/or family. Voiced understanding. JOSSIE WISE DO July 18, 2020 08:15
== END 2020-07-18 08:19 | disposition home or self-care (01) ==
LOC: EDUNIT# 07:47 → ER FS 07:49
DX: K29.70 Gastritis, unspecified, without bleeding (principal); Z88.5 Allergy status to narcotic agent; Z88.8 Allergy status to other drugs, medicaments and biological substances
CPT/HCPCS: 99283

== ENCOUNTER → 2020-07-18 | Outpatient (CLI) | payer BC ==
--- NOTE | 2020-07-18 10:37 | Diagnostic Imaging Report ---
PROCEDURE: US Gallbladder. TECHNIQUE: Multiple real-time grayscale images were obtained over the right upper quadrant in various projections. INDICATION: Right upper quadrant pain and epigastric pain radiating to the right shoulder. Liver is normal in size at 16 cm. No discrete liver mass is identified. Portal vein is patent and shows normal direction of flow. Gallbladder is without stones or sludge. There is no wall thickening or biliary ductal dilatation. Pancreas unremarkable. Aorta is nonaneurysmal. IVC is patent. Right kidney is without calculi or hydronephrosis. There is no ascites. IMPRESSION: No evidence of cholelithiasis or acute cholecystitis. Dictated by: Dictated on workstation # [id number]
== END ==
LOC: RAD 09:32
PROVIDERS: ATTEND Surgery
DX: R10.13 Epigastric pain (principal); R10.11 Right upper quadrant pain
CPT/HCPCS: 76705

== ENCOUNTER → 2020-07-23 | Outpatient (CLI) | payer BC ==
[~2020-07-23] MED LIST changes: +CATHETER FLUSH 10 ML SYR IV PRN
--- NOTE | 2020-07-23 15:23 | Diagnostic Imaging Report ---
INDICATION: Epigastric pain. Patient was administered 5.0 mCi technetium 99m Choletec intravenously and imaging over the abdomen was performed. At 1 hour, the patient ingested 38 ounces of Ensure and gallbladder ejection fraction was calculated. There is homogeneous uptake of activity by the liver with prompt excretion of activity into the gallbladder. There is activity within the gallbladder. Activity passes into the small bowel. Gallbladder ejection fraction is abnormally low at 19%. IMPRESSION: 1. Patent cystic duct and common bile duct. 2. Low gallbladder ejection fraction of 19%. Dictated by: Dictated on workstation # [id number]
== END ==
LOC: CARD 12:00
PROVIDERS: ATTEND Surgery
DX: R10.13 Epigastric pain (principal)
CPT/HCPCS: 78227; A9537

== ENCOUNTER 2020-08-16 05:35 | Outpatient (CLI) | payer BC ==
[~2020-08-16] VITALS: Ht 162.6 cm; Wt 59.4 kg
[~2020-08-16 05:35] MED LIST changes: -CATHETER FLUSH 10 ML SYR IV PRN
[2020-08-16] MEDS ORDERED: ONDA4TAB11 PO (11:57)
[2020-08-16] MEDS ORDERED: CETI10TA4 PO (11:57)
[2020-08-16] MEDS ORDERED: FLUT9.9S NS (11:57)
[2020-08-16] MEDS ORDERED: NORE1CAP PO (11:57)
== END 2020-08-16 12:08 | disposition home or self-care (01) ==
LOC: PREOP 05:35
PROVIDERS: ATTEND Surgery
DX: Z01.818 Encounter for other preprocedural examination (principal)

== ENCOUNTER 2020-08-23 08:25 | Day surgery (SDC) | payer BC ==
[2020-08-23] VITALS (10 sets, daily range): BP systolic 105–131; BP diastolic 59–95
[~2020-08-23] VITALS: Ht 162.6 cm; Wt 59.4 kg
[~2020-08-23 08:25] MED LIST changes: +CETI10TA4 PO; +FLUT9.9S NS; +NORE1CAP PO; +ONDA4TAB11 PO
--- NOTE | 2020-08-23 08:32 | Progress Note-Pre Operative ---
Pre-Operative Progress Note H&P Reviewed The H&P was reviewed, patient examined and no changes noted. Date Seen by Provider: Aug 23, 2020 Time Seen by Provider: 08: Date H&P Reviewed: Aug 23, 2020 Time H&P Reviewed: 08:31 Pre-Operative Diagnosis: epigastric abdominal pain, biliary dyskinesia HEIKE MENDEZ DO Aug 23, 2020 08:32
[2020-08-23] MEDS ORDERED: fentaNYL INJ 100 MCG/2 ML AMP ONE ×2 (08:51→10:50)
[2020-08-23] MEDS ORDERED: MIDAZOLAM 2 MG/2 ML (VERSED) VIAL ONE (08:51)
[2020-08-23] MEDS ORDERED: GLYCOPYRROLATE 0.2 MG/ML (ROBINUL) 2 ML VIAL ONE (08:51)
[2020-08-23] MEDS ORDERED: LIDOCAINE PF 2% 5 ML (XYLOCAINE) VIAL ONE (08:51)
[2020-08-23] MEDS ORDERED: ROCURONIUM 10 MG/ML 5 ML SYRINGE IV ONE (08:51)
[2020-08-23] MEDS ORDERED: SEVOFLURANE (ULTANE) 15 ML INHAL SOLN ONE ×2 (08:51→09:46)
[2020-08-23] MEDS ORDERED: NEOSTIGMINE 3 MG/3 ML VIAL ONE (08:51)
[2020-08-23] MEDS ORDERED: proPOfol 200 MG/20 ML (DIPRIVAN) VIAL IV ONE (08:51)
[2020-08-23] MEDS ORDERED: ONDANSETRON 4 MG/2 ML (SDV) Z0FRAN ONE ×2 (08:51→09:12)
[2020-08-23] MEDS ORDERED: LIDOCAINE/EPI 1%-1:100,000 (XYLOCAINE) 20ML ONE (08:53)
[2020-08-23] MEDS ORDERED: ceFAZolin INJECTION 1,000 MG ONE (09:12)
[2020-08-23] MEDS ORDERED: LACTATED RINGERS 1,000 ML IV PRN ×2 (09:15)
[2020-08-23] MEDS ORDERED: SCOPOLAMINE 1.5 MG (TRANSDERM-SCOP) PATCH TOP ONE (09:15)
[2020-08-23] MEDS ORDERED: ONDANSETRON 4 MG/2 ML (SDV) Z0FRAN IV ONE (09:15)
[2020-08-23] MEDS ORDERED: FAMOTIDINE 20MG/2ML IV (PEPCID) IV ONE (09:15)
[2020-08-23] MEDS ORDERED: ceFAZolin INJECTION 1,000 MG in WATER (STERILE) FOR INJECTION 10 ML IV ONE (09:15)
--- NOTE | 2020-08-23 10:13 | Progress Note-Post Operative ---
Post-Operative Progess Note Surgeon (s)/Steeping Press Operator (s) Surgeon HEIKE MENDEZ DO Steeping Press Operator: Dr. Erazo to assist in retraction dissection and closure. Pre-Operative Diagnosis epigastric abdominal pain, biliary dyskinesia Post-Operative Diagnosis same Procedure & Operative Findings Date of Procedure 08/23/20 Procedure Performed/Findings PROCEDURE: Laparoscopic cholecystectomy with intraoperative cholangiogram. COMPLICATIONS: None. PROCEDURE: The patient was taken to the operating suite and was prepped and draped in sterile fashion. A surgical pause was performed. Just superior to the umbilicus, a 12 mm incision was made. Dissection was taken down to the fascia, which was then scored and grasped with a Ruth and the abdomen was then entered. A 0 Vicryl suture was placed in a spekxe-jw-rxasg fashion and a Deleon trocar was placed and secured. Pneumoperitoneum was achieved. A 5mm trochar place in the subxyphoid and 2 in the right upper quadrant. Small bilateral hernia present. Uterus, fallopian tubes and ovaries appear normal. The gallbladder was then grasped and elevated. The cystic duct, and cystic artery were then dissected out. Clip was placed on the distal portion of the cystic duct which was then partially transected. An arrow catheter was inserted into the duct. The cholangiogram was then performed. No filing defects and contrast made its way into the duodenum. Catheter removed. Clips were placed on proximal portion of the cystic duct and then the duct was then transected. Clips were placed along the proximal and distal portion of the cystic artery which was then transected. Hook cautery was used to dissect the gallbladder from the gallbladder fossa achieving hemostasis. The gallbladder was placed in an Endobag and removed through the 12 mm trocar site. The abdomen was then reinspected. Copious amounts of irrigation were used to irrigate the abdomen and there were no signs of active bleeding. Hemostasis had been achieved. The 12 mm fascial defect was then closed with 0 Vicryl suture that had been placed in a rshiaf-ly-mfrxs fashion. The abdomen was then desufflated, the trocars were removed. The abdomen was then washed and dried. The skin was then closed using 4-0 Monocryl in a subcuticular fashion. The abdomen was washed and dried and Skin Affix was place over incisions. Patient tolerated the procedure well without any complications and was taken to the recovery room in stable condition. Anesthesia Type general Estimated Blood Loss Estimated blood loss (mL): minimal Specimens/Packing Specimens Removed gallbladder HEIKE MENDEZ DO Aug 23, 2020 10:13
[2020-08-23] MEDS ORDERED: TRM50T PO (10:17)
[2020-08-23] MEDS ORDERED: DOCU-143 PO (10:17)
--- NOTE | 2020-08-23 10:18 | Discharge Inst-Simple/Standard ---
Discharge Inst-Standard Discharge Medications New, Converted or Re-Newed RX: Transmitted to Pharmacy Patient Instructions/Follow Up Plan of Care/Instructions/FU: 2 weeks Samantha Activity as Tolerated: No Discharge Diet: Regular Diet Other Inst to Patient Follow up Appt: Make appointment for 2 weeks. Instructions: No lifting greater than 10 pounds. No strenuous activity. May shower in 24 hours, no tub bath or soaking. Use incentive spirometer at home as directed. No Smoking Skin/Wound Care: You have special glue over incision, it will fall off on it's own. Symptoms to Report: Appetite Changes, Extremity Discoloration, Numbness/Tingling, Swelling Increased, Bleeding Excessive, Eyesight Changes, Pain Increased, Urine Color Change, Constipation(Persistent), Fever over 101 degree F, Pain/Pressure in chest, Urinating Difficulty, Cough Up/Vomit Blood, Heart Beat Irreg/Pounding, Pain/Pressure in jaw, Vaginal Bleeding Increase, Cramps in feet or legs, Lightheadedness, Pain/Pressure in shoulder, Diarrhea(Persistent), Memory Changes Suddenly, Questions/Concerns, Weight gain consecutive days, Dizziness/Fainting, Nausea/Vomiting, Shortness of Breath, Weight gain over 2 pounds. If eyes or skin turn yellow notify physician. If questions or concerns contact your physician Or seek help at emergency department. HEIKE MENDEZ DO Aug 23, 2020 10:18
[2020-08-23] MEDS ORDERED: MEPERIDINE (DEMEROL) INJ 50 MG/ML IVP ONE (10:30)
[2020-08-23] MEDS ORDERED: fentaNYL INJ 100 MCG/2 ML AMP IVP ONE (10:30)
[2020-08-23] MEDS ORDERED: PROMETHAZINE INJ 25 MG/ML (PHENERGAN) AMP IVP ONE (10:30)
[2020-08-23] MEDS ORDERED: ONDANSETRON 4 MG/2 ML (SDV) Z0FRAN IVP PRN (10:30)
--- NOTE | 2020-08-23 11:12 | Diagnostic Imaging Report ---
Fluoroscopy at [facility]. 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 8 seconds of fluoroscopy time was utilized. 31 spot films of the right upper quadrant were obtained. There are laparoscopic devices in place. The common bile duct has been opacified via the cystic duct catheter. The, common bile duct does not seem to be dilated and there is no definite defect to suggest a retained calculus. However a small portion of the duct is partially obscured by one of the instruments. Contrast is seen extending into the small bowel. IMPRESSION: 1. Fluoroscopic assistance was provided for Dr. Singh. Dictated by: Dictated on workstation # [id number]
--- NOTE | 2020-08-23 12:20 | Anesthesia-General Post-Op ---
General Patient Condition Mental Status/LOC: Same as Preop Cardiovascular: Satisfactory Nausea/Vomiting: Absent Respiratory: Satisfactory Pain: Controlled Complications: Absent Post Op Complications Complications None Follow Up Care/Instructions Patient Instructions None needed. Anesthesia/Patient Condition Patient Condition Patient is doing well, no complaints, stable vital signs, no apparent adverse anesthesia problems. No complications reported per nursing. FALLON RUIZ CRNA Aug 23, 2020 12:20
[2020-08-23] MEDS ORDERED: ACHD5005 PO (13:23)
[2020-08-23] MEDS ORDERED: HYDROcodone/APAP 5 MG/325 MG (LORTAB) TAB PO ONE (13:30)
[2020-08-23] MEDS ORDERED: HYDROcodone/APAP 5 MG/325 MG (LORTAB) TAB ONE (13:34)
== END 2020-08-23 14:45 | disposition home or self-care (01) ==
LOC: SDC 08:25
PROVIDERS: ATTEND Surgery
DX: K81.1 Chronic cholecystitis (principal); K82.8 Other specified diseases of gallbladder; E06.3 Autoimmune thyroiditis; Z79.899 Other long term (current) drug therapy; Z79.890 Hormone replacement therapy
CPT/HCPCS: 76000; 84703; 87081; 88304